=== PATIENT | male | born 1985 | race Caucasian/White ===

== ENCOUNTER → 2016-03-11 | Day surgery (SDC) | payer OTHER ==
[~2016-03-11] VITALS: Ht 180.3 cm; Wt 82.6 kg
[~2016-03-11] MED LIST: FLOM5CAP PO; LR 1,000 ML IV SCH; MIDAZOLAM INJ 2 MG/2 ML VIAL (J2250) As Ordered ONE; ONDANSETRON 4MG/2ML VIAL (J2405) IV PRN; PERC5TAB6 PO; PERCOCET 5MG/325MG TAB PO PRN; ceFAZolin 2 GM/D5W 50 ML IV BAG (J0690) As Ordered ONE; fentaNYL 100 MCG/2 ML INJECTION (J3010) As Ordered ONE
--- NOTE | 2016-03-11 09:20 | REP ---
Clinical: Nephrolithiasis. Technique: Single supine view of the abdomen and pelvis. Comparison: 02/24/2016. Findings: 3 mm calcification in the lower pole left kidney is again identified and unchanged. Smaller bilateral intrarenal calcifications cannot be excluded. Bowel gas pattern is nonspecific. No organomegaly. Skeletal structures are intact. Impression: At least 3 mm calcification in the lower pole left kidney. Further calcifications bilaterally cannot be excluded. Signed by Andrea Lancaster MD 03/11/2016 09:11 A
[2016-03-11 11:00] VITALS: BP 134/55
--- NOTE | 2016-03-11 13:12 | RO ---
DATE OF PROCEDURE: 03/11/2015 PREOPERATIVE DIAGNOSIS: Left kidney stone. POSTOPERATIVE DIAGNOSIS: Left kidney stone. SURGERY PERFORMED: Left extracorporeal shockwave lithotripsy. SURGEON: Dr. Reece Weinberg ASSISTANT WAREHOUSE MANAGER: None. ANESTHESIA: Monitored anesthesia care (MAC). COMPLICATIONS: None. ESTIMATED BLOOD LOSS: N/A. HISTORY OF PRESENT ILLNESS: 30-year-old male patient with a 5 mm left kidney stone in the lower pole. Patient has consented for left extracorporeal shockwave lithotripsy. PROCEDURE DESCRIPTION: In a patient in supine position under MAC anesthesia, after finding the stone with ultrasound and x-ray, we gave a total of pulses of 2500 at a power of 1-20. The first 100 shockwave lithotripsies were done at a level of 1-5, the following 100 shockwave lithotripsies were done at a level of 5-10, and the following 2200 shockwave lithotripsies were done at a level of 10-20. There were no complications of surgery. The patient will go home today with pain medication and Flomax. He will strain the urine and increase water intake for 3 liters. Followup at [facility] in about 3 weeks.
== END | disposition home or self-care (01) ==
LOC: M SDC 06:50
PROVIDERS: ATTEND Urology
DX: N20.0 Calculus of kidney (principal); F17.290 Nicotine dependence, other tobacco product, uncomplicated; K21.9 Gastro-esophageal reflux disease without esophagitis; G89.29 Other chronic pain; R06.83 Snoring; F32.9 Major depressive disorder, single episode, unspecified; G47.33 Obstructive sleep apnea (adult) (pediatric); Z87.820 Personal history of traumatic brain injury; Z91.018 Allergy to other foods; Z87.440 Personal history of urinary (tract) infections
CPT/HCPCS: 50590; 74000; J0690; J2250; J3010

== ENCOUNTER → 2016-04-01 | Outpatient (CLI) | payer OTHER ==
[~2016-04-01] MED LIST changes: -LR 1,000 ML IV SCH; -MIDAZOLAM INJ 2 MG/2 ML VIAL (J2250) As Ordered ONE; -ONDANSETRON 4MG/2ML VIAL (J2405) IV PRN; -PERCOCET 5MG/325MG TAB PO PRN; -ceFAZolin 2 GM/D5W 50 ML IV BAG (J0690) As Ordered ONE; -fentaNYL 100 MCG/2 ML INJECTION (J3010) As Ordered ONE
--- NOTE | 2016-04-01 09:17 | REP ---
CT study of the abdomen pelvis without IV or oral contrast: Renal stone protocol. History: Left flank pain. History of kidney stones. Comparison CT study is from February 18 2016. This showed intrarenal calculi in the upper and lower pole of the left kidney. Findings: The lung bases are clear. The liver and the spleen remain normal in size and homogeneous in texture. No adrenal lesion is seen. The gallbladder and the pancreas are unremarkable. Small and large intestinal bowel loops are normal in appearance. A normal appendix is seen. There is a dystrophic calcification in the prostate again noted unchanged. Seminal vesicles and urinary bladder are unremarkable. No hydronephrosis is seen on either side. There is a 4 mm calculus again noted in the intrarenal collecting system in the upper pole of the left kidney. The previously identified intrarenal calculus in the left lower pole is not visible today consistent with passage in the interval since the prior study of February 18, 2016. No intrarenal calculus or ureteral calculus is noted on the right. Exam is otherwise unremarkable. Impression: 4 mm intrarenal calculus upper pole left kidney persists. Previously noted lower pole left renal calculus is no longer present. No hydronephrosis, bladder or ureteral calculus seen. Signed by Ned Glover MD 04/01/2016 09:26 A
== END ==
LOC: M RAD 07:49
PROVIDERS: ATTEND Urology
DX: R10.9 Unspecified abdominal pain (principal); N20.0 Calculus of kidney

== ENCOUNTER → 2016-04-02 | Outpatient (CLI) | payer OTHER ==
--- NOTE | 2016-04-02 10:10 | REP ---
KUB ABDOMEN AND PELVIS: Two KUB films of the abdomen and pelvis are performed and compared to a prior study of 03/11/2016. The previously noted subcentimeter calcification in the lower pole of the left kidney is no longer visualized. There is a tiny subcentimeter calcification in the upper pole of the left kidney, which is not well visualized today due to overlying bowel gas. No other abnormal calcifications are seen. There is normal bowel gas pattern. The visualized osseous structures appear essentially unremarkable. IMPRESSION: Previously noted subcentimeter calcification in the lower pole of the left kidney is no longer visualized. Subcentimeter calcification in the upper pole of the left kidney is only vaguely visualized, not well see due to overlying bowel gas. Signed by Royal Viramontes MD 04/02/2016 01:13 P
[2016-04-02 12:10] LABS: MEAN CORPUSCULAR HEMOGLOBIN 29.5 pg (27.0-33.0); MEAN CORPUSCULAR HGB CONC 31.9 g/dl (32.0-36.5); MEAN CORPUSCULAR VOLUME 92.6 fl (80.0-96.0); RED CELL DISTRIBUTION WIDTH 12.3 % (11.5-14.5); WHITE BLOOD COUNT 6.4 K/mm3 (4.0-10.0)
[2016-04-02 12:17] LABS: INR 0.93
[2016-04-02 12:19] LABS: ANION GAP 11 MEQ/L (8-16); BLOOD UREA NITROGEN 15 MG/DL (7-18); CALCIUM LEVEL 9.7 MG/DL (8.5-10.1); CARBON DIOXIDE LEVEL 26 MEQ/L (21-32); CHLORIDE LEVEL 104 MEQ/L (98-107); CREATININE FOR GFR 1.01 MG/DL (0.70-1.30); GLOMERULAR FILTRATION RATE > 60.0 (>60); GLUCOSE, FASTING 83 MG/DL (70-105); POTASSIUM SERUM 4.6 MEQ/L (3.5-5.1); SODIUM LEVEL 141 MEQ/L (136-145)
== END ==
LOC: M SMT 08:20
PROVIDERS: ATTEND Nurse Practitioner Women's Health
DX: Z01.818 Encounter for other preprocedural examination (principal); N20.0 Calculus of kidney

== ENCOUNTER 2016-04-08 07:15 | Day surgery (SDC) | payer OTHER ==
[2016-04-08] MEDS ORDERED: LR 1,000 ML IV SCH ×2 (08:00→10:00)
--- NOTE | 2016-04-08 08:01 | REP ---
Clinical: Nephrolithiasis. Comparison: 04/02/2016. Technique: Single supine view of the abdomen and pelvis. Findings: Evaluation of the urinary tract system is limited by overlying bowel gas. No obvious urinary tract calcifications are appreciated. No evidence for bowel obstruction. No organomegaly. No abnormal calcifications. Skeletal structures intact. Impression: Limited evaluation of the urinary tract system. No obvious nephrolithiasis appreciated. Signed by Andrea Lancaster MD 04/08/2016 07:53 A
[2016-04-08] MEDS ORDERED: ceFAZolin 2 GM/D5W 50 ML IV BAG (J0690) As Ordered ONE (08:22)
[2016-04-08] MEDS ORDERED: MIDAZOLAM INJ 2 MG/2 ML VIAL (J2250) As Ordered ONE (08:40)
[2016-04-08] MEDS ORDERED: PROPOFOL 200 MG/20 ML VIAL As Ordered ONE (08:41)
[2016-04-08] MEDS ORDERED: ONDANSETRON 4MG/2ML VIAL (J2405) IV PRN (10:00)
[2016-04-08] MEDS ORDERED: fentaNYL 100 MCG/2 ML INJECTION (J3010) IV PRN (10:00)
[2016-04-08] MEDS ORDERED: PERCOCET 5MG/325MG TAB PO PRN (10:00)
[2016-04-08 10:15] VITALS: BP 110/82
--- NOTE | 2016-04-08 10:40 | RO ---
DATE OF PROCEDURE: 04/08/2016 PREOPERATIVE DIAGNOSIS: Left kidney stone. POSTOPERATIVE DIAGNOSIS: Left kidney stone. SURGERY PERFORMED: Left extracorporeal shockwave lithotripsy. SURGEON: Dr. Reece Weinberg FEEDER OPERATOR AUTOMATIC: None. ANESTHESIA: Monitored anesthesia care (MAC). COMPLICATIONS: None. ESTIMATED BLOOD LOSS: N/A. HISTORY OF PRESENT ILLNESS: This is a 30-year-old male patient with a left kidney stone about 4 mm in diameter in the lower pole of the kidney. For this reason, he has consented for a left extracorporeal shockwave lithotripsy. PROCEDURE DESCRIPTION: In a patient under MAC anesthesia in supine position after finding the stone with ultrasound and x-ray, we gave a total of 2500 impulses at a power of 1 to 20. The first 100 impulses were performed at a level of 1-5, the following 100 shockwave lithotripsy was done at a power of 5-10, and the final 2300 shockwave lithotripsies were done at a power of 10-20. The patient tolerated well the procedure. There were no complications. The patient will go home today with pain medication and Flomax. Will increase water intake to 3 liters. Followup at [facility] [place] in about 3 weeks.
[2016-04-11] MEDS ORDERED: KETOROLAC 30 MG/ML VIAL (J1885) As Ordered ONE (18:04)
== END 2016-04-08 10:25 | disposition home or self-care (01) ==
LOC: M SDC 07:15
PROVIDERS: ATTEND Urology
DX: N20.0 Calculus of kidney (principal); F17.290 Nicotine dependence, other tobacco product, uncomplicated; K21.9 Gastro-esophageal reflux disease without esophagitis; G89.29 Other chronic pain; G47.33 Obstructive sleep apnea (adult) (pediatric); R06.83 Snoring; F41.9 Anxiety disorder, unspecified; Z87.820 Personal history of traumatic brain injury; Z91.018 Allergy to other foods; Z87.440 Personal history of urinary (tract) infections; Z79.899 Other long term (current) drug therapy
CPT/HCPCS: 50590; 74000; J0690; J2250

== ENCOUNTER 2016-04-11 17:27 | Emergency (ER) | payer OTHER ==
[2016-04-11] MEDS ORDERED: KETOROLAC 30 MG/ML VIAL (J1885) ONE (17:28)
[2016-04-11 18:19] LABS: BASO % 0.7 % (0.0-1.0); EOS # 0.2 K/mm3 (0.0-0.50); EOS % 2.2 % (0.0-3.0); LARGE UNSTAINED CELL # 0.6 K/mm3 (0.0-0.4); LARGE UNSTAINED CELL % 7.2 % (0.0-4.0); LYMPH # 3.1 K/mm3 (1.5-4.5); LYMPH % 33.4 % (24.0-44.0); MEAN CORPUSCULAR HEMOGLOBIN 30.6 pg (27.0-33.0); MEAN CORPUSCULAR HGB CONC 33.1 g/dl (32.0-36.5); MEAN CORPUSCULAR VOLUME 92.5 fl (80.0-96.0); MONO # 0.7 K/mm3 (0.0-0.8); MONO % 9.3 % (0.0-5.0); NEUTROPHILS # 3.6 K/mm3 (1.8-7.7); NEUTROPHILS % 47.1 % (36.0-66.0); PLATELET COUNT, AUTOMATED 245 k/mm3 (150-450); RED CELL DISTRIBUTION WIDTH 12.7 % (11.5-14.5); WHITE BLOOD COUNT 7.6 K/mm3 (4.0-10.0)
[2016-04-11 18:38] LABS: ANION GAP 7 MEQ/L (8-16); BLOOD UREA NITROGEN 12 MG/DL (7-18); CALCIUM LEVEL 8.9 MG/DL (8.5-10.1); CARBON DIOXIDE LEVEL 30 MEQ/L (21-32); CHLORIDE LEVEL 106 MEQ/L (98-107); CREATININE FOR GFR 0.99 MG/DL (0.70-1.30); GLOMERULAR FILTRATION RATE > 60.0 (>60); GLUCOSE, FASTING 89 MG/DL (70-105); POTASSIUM SERUM 4.3 MEQ/L (3.5-5.1); SODIUM LEVEL 143 MEQ/L (136-145)
--- NOTE | 2016-04-11 19:00 | REPUSA ---
CT of the abdomen and pelvis without contrast Clinical statement: Pain. Technique: Multiple axial CT images were obtained from the base of the lungs to the floor of the pelv is utilizing 5 mm axial slices without administration of contrast. Coronal and sagittal reconstructio ns were also obtained. Comparison: 04/01/2016. Findings: Chest: The visualized lung bases demonstrate minimal atelectasis bilaterally. Abdomen: The kidneys are normal in size bilaterally. There is no evidence of hydronephrosis. A 2 mm s tone is seen in the left kidney. The liver, spleen, pancreas, gallbladder and adrenal glands are unre markable. The aorta demonstrates normal caliber and contour. There is no abdominal lymphadenopathy or ascites. Pelvis: The bowel is unremarkable, with no obstructive or inflammatory changes. The appendix is trav l. The urinary bladder is within normal limits. There is no pelvic lymphadenopathy or ascites. The ot her pelvic structures appear unremarkable. Bones: There are no suspicious osseous abnormalities seen. Impression: 1. Nonobstructing left renal nephrolithiasis. 2. No obstructive or inflammatory bowel changes. 3. Minimal atelectasis in the lung bases bilaterally.
--- NOTE | 2016-04-11 19:31 | EDDOCDS ---
Nurse's Notes [facility] Name: Royal Chirinos Age: 30 yrs Sex: Male : 1985 Arrival Date: 04/11/2016 Time: 17:27 Bed PR Private MD: Jackie Espinoza [facility] Diagnosis: Calculus of kidney Presentation: 04/11 17:32 Presenting complaint: Patient states: left flank pain- had lithotripsy on th and i srm havent pee'd out any stones and pain is getting worse and worse. Acute neurological deficits are not present. Mechanism of Injury: No Mechanism of Injury. Adult Sepsis Screening: The patient does not have new or worsening altered mentation. Patient's respiratory rate is less than 22. Systolic blood pressure is greater than 100. Patient has a qSOFA score of 0- Negative Sepsis Screen. Suicide/Homicide risk assessment- the patient denies having any suicidal and/or homicidal ideations and does not present with any other emotional, behavioral or mental health complaints. Status: The patient is an active duty manufacturer's service representative. Transition of care: patient was not received from another setting of care. 17:32 Acuity: JANICE Level 3 [facility] 17:32 Method Of Arrival: Walkin/Carried/Asstd [facility] Triage Assessment: 17:33 General: Appears uncomfortable, Behavior is appropriate for age, cooperative. Pain: srm Pain currently is 9 out of 10 on a pain scale. HIV screening NA for this visit Offered previously. Musculoskeletal: Reports left flank pain'. Historical: - Allergies: no known allergies; - Home Meds: 1. tamsulosin 0.4 mg oral cp24 1 cap once daily (Last dose: 04/11/2016 05:45) 2. Percocet 5-325 mg oral tab every 4-6 hours prn (Last dose: 04/11/2016 14:30) - PMHx: Kidney stones; - PSHx: Hernia repair; Back surgery; Lithotripsy; - Social history: Smoking status: Patient uses tobacco products, current every day smoker. No barriers to communication noted, The patient speaks fluent [place] Island[place], Speaks appropriately for age. - Family history: Not pertinent. - : The pt / caregiver states he / she is not on anticoagulants. Home medication list is obtained from the patient. - Exposure Risk Screening:: None identified. Screenin:12 Screening information is obtained from the patient. Fall risk: No risks identified. kr3 Assistance ADL's: requires no assistance with activities of daily living. Abuse/DV Screen: The patient / caregiver reports he/she is: not in a situation that causes fear, pain or injury. Nutritional screening: No deficits noted. Advance Directives: Currently, there is no health care proxy. home support is adequate. Assessment: 18:11 General: Appears uncomfortable. Pain: Location: left flank Pain currently is 8 out of kr3 10 on a pain scale. Pain radiates to left lower quadrant. Respiratory: Respiratory effort is even, unlabored. Derm: Skin is pink, warm & dry. 19:27 Reassessment: Patient appears in no apparent distress at this time. General: Appears slm comfortable, pt reports feeling better . Vital Signs: 17:28 BP 120 / 80 RA Sitting (auto/lg); Pulse 66; Resp 16; Temp 97.3(O); Pulse Ox 100% on rs6 R/A; Weight 81.65 kg (R); Height 71 in. (180.34 cm) (R); Pain 8/10; 19:28 BP 126 / 81; Pulse 75; Resp 16; Pulse Ox 97% ; Pain 4/10; slm 19:29 Pain 4/10; slm 17:28 Body Mass Index 25.10 (81.65 kg, 180.34 cm) [facility] Vitals: 17:28 Log In Time: April 11, 2016 at 17:28. rs6 ED Course: 17:28 Patient visited by Mariah Vinson PCA. rs6 17:28 [facility] hospital is Private Physician. rs6 17:28 Patient moved to Waiting rs6 17:30 Patient visited by Mariah Vinson PCA. rs6 17:30 Patient moved to Pre RCE rs6 17:32 Triage Initiated srm 17:34 Patient moved to Triage 2 srm 17:36 Claudio Ace PA is PHCP. btw 17:36 Magdalene Guerra MD is Attending Physician. btw 17:36 Patient visited by Claudio Ace PA. btw 18:11 Patient visited by Garima Luciano RN. kr3 18:11 Urine Culture Sent. kr3 18:11 Urinalysis Sent. kr3 18:11 BMP Sent. kr3 18:11 CBC with Diff Sent. kr3 18:12 The patient / caregiver is instructed regarding the plan of care and ED course. kr3 Accompanied by Family Member, Patient has correct armband on for positive identification. 18:13 Patient moved to [address] 18:23 [facility] Payment Agreement was scanned into [employer] and attached to record. gjb 18:33 Patient name changed from Royal\S\\S\Chirinos\S\ to Royal\S\ \S\Chirinos. EDMS 19:16 Patient moved to PR slm 19:20 Reece Weinberg is Referral Physician. btw 19:21 CT ABD & PELVIS: No Contrast Returned. EDMS 19:27 Parisa Wong LPN is Primary Nurse. slm 19:28 No IV's were initiated during this patient's visit. No procedures done that require slm assistance. Administered Medications: 18:11 Drug: ketorolac 30 mg [ketorolac 30 mg/mL (1 mL) injection solution (1 mL)] Route: IM; kr3 Site: left deltoid; 19:29 Follow up: Pain 06/14 Adult slm Order Results: Lab Order: CBC with Diff; SPEC'M 04/11/16 18:08 Test: WHITE BLOOD COUNT; Value: 7.6; Range: 4.0-10.0; Units: K/mm3; Status: F Test: RED BLOOD COUNT; Value: 5.26; Range: 4.30-6.10; Units: M/mm3; Status: F Test: HEMOGLOBIN; Value: 16.1; Range: 14.0-18.0; Units: g/dl; Status: F Test: HEMATOCRIT; Value: 48.7; Range: 42.0-52.0; Units: %; Status: F Test: MEAN CORPUSCULAR VOLUME; Value: 92.5; Range: 80.0-96.0; Units: fl; Status: F Test: MEAN CORPUSCULAR HEMOGLOBIN; Value: 30.6; Range: 27.0-33.0; Units: pg; Status: F Test: MEAN CORPUSCULAR HGB CONC; Value: 33.1; Range: 32.0-36.5; Units: g/dl; Status: F Test: RED CELL DISTRIBUTION WIDTH; Value: 12.7; Range: 11.5-14.5; Units: %; Status: F Test: PLATELET COUNT, AUTOMATED; Value: 245; Range: 150-450; Units: k/mm3; Status: F Test: NEUTROPHILS %; Value: 47.1; Range: 36.0-66.0; Units: %; Status: F Test: LYMPH %; Value: 33.4; Range: 24.0-44.0; Units: %; Status: F Test: MONO %; Value: 9.3; Range: 0.0-5.0; Abnormal: Above high normal; Units: %; Status: F Test: EOS %; Value: 2.2; Range: 0.0-3.0; Units: %; Status: F Test: BASO %; Value: 0.7; Range: 0.0-1.0; Units: %; Status: F Test: LARGE UNSTAINED CELL %; Value: 7.2; Range: 0.0-4.0; Abnormal: Above high normal; Units: %; Status: F Test: NEUTROPHILS #; Value: 3.6; Range: 1.8-7.7; Units: K/mm3; Status: F Test: LYMPH #; Value: 3.1; Range: 1.5-4.5; Units: K/mm3; Status: F Test: MONO #; Value: 0.7; Range: 0.0-0.8; Units: K/mm3; Status: F Test: EOS #; Value: 0.2; Range: 0.0-0.50; Units: K/mm3; Status: F Test: BASO #; Value: 0.0; Range: 0.0-0.2; Units: K/mm3; Status: F Test: LARGE UNSTAINED CELL #; Value: 0.6; Range: 0.0-0.4; Abnormal: Above high normal; Units: K/mm3; Status: F Lab Order: [facility]; SPEC'M 04/11/16 18:08 Test: GLUCOSE, FASTING; Value: 89; Range: 70-105; Units: MG/DL; Status: F Test: BLOOD UREA NITROGEN; Value: 12; Range: 7-18; Units: MG/DL; Status: F Test: CREATININE FOR GFR; Value: 0.99; Range: 0.70-1.30; Units: MG/DL; Status: F Test: GLOMERULAR FILTRATION RATE; Value: > 60.0; Range: >60; Status: F Test: SODIUM LEVEL; Value: 143; Range: 136-145; Units: MEQ/L; Status: F Test: POTASSIUM SERUM; Value: 4.3; Range: 3.5-5.1; Units: MEQ/L; Status: F Test: CHLORIDE LEVEL; Value: 106; Range: 98-107; Units: MEQ/L; Status: F Test: CARBON DIOXIDE LEVEL; Value: 30; Range: 21-32; Units: MEQ/L; Status: F Test: ANION GAP; Value: 7; Range: 8-16; Abnormal: Below low normal; Units: MEQ/L; Status: F Test: CALCIUM LEVEL; Value: 8.9; Range: 8.5-10.1; Units: MG/DL; Status: F Test Note: ; Units are mL/min/1.73 m2 Chronic Kidney Disease Staging per NKF: Stage I & II GFR >=60 Normal to Mildly Decreased Stage III GFR 30-59 Moderately Decreased Stage IV GFR 15-29 Severely Decreased Stage V GFR <15 Very Little GFR Left ESRD GFR <15 on HEAD OF DIGITAL Lab Order: Urinalysis; SPEC'M 04/11/16 18:08 Test: APPEARANCE, URINE; Value: CLEAR; Range: CLEAR; Status: F Test: COLOR, URINE; Value: YELLOW; Range: YELLOW; Status: F Test: PH,URINE; Value: 6.0; Range: 5.0-9.0; Units: UNITS; Status: F Test: SPECIFIC GRAVITY URINE AUTO; Value: 1.010; Range: 1.002-1.035; Status: F Test: PROTEIN, URINE AUTO; Value: NEGATIVE; Range: NEGATIVE; Units: mg/dL; Status: F Test: GLUCOSE, URINE (UA) AUTO; Value: NEGATIVE; Range: NEGATIVE; Units: mg/dL; Status: F Test: KETONE, URINE AUTO; Value: NEGATIVE; Range: NEGATIVE; Units: mg/dL; Status: F Test: UROBILINOGEN, URINE AUTO; Value: 0.2; Range: 0.0-2.0; Units: mg/dL; Status: F Test: BILIRUBIN, URINE AUTO; Value: NEGATIVE; Range: NEGATIVE; Status: F Test: NITRITE, URINE AUTO; Value: NEGATIVE; Range: NEGATIVE; Status: F Test: LEUKOCYTE ESTERASE, URINE AUTO; Value: NEGATIVE; Range: NEGATIVE; Status: F Test: BLOOD, URINE BLOOD; Value: 2+; Range: NEGATIVE; Abnormal: Above high normal; Status: F Test: WBC, URINE AUTO; Value: 1; Range: 0-3; Units: /HPF; Status: F Test: RBC, URINE AUTO; Value: 17; Range: 0-3; Abnormal: Above high normal; Units: /HPF; Status: F Test: BACTERIA, URINE AUTO; Value: NEGATIVE; Range: NEGATIVE; Status: F Test: SQUAMOUS EPITHELIAL CELL UR AU; Value: 0; Range: 0-6; Units: /HPF; Status: F Test: MUCUS, URINE; Value: SMALL; Range: NEGATIVE; Status: F Test: HYALINE CAST, URINE AUTO; Value: 0; Range: 0-1; Units: /LPF; Status: F Radiology Order: CT ABD & PELVIS: No Contrast Test: CT ABD & PELVIS: No Contrast REASON FOR EXAMINATION: LEFT flank pain s/p lithotripsy; ; CT of the abdomen and pelvis without contrast; Clinical statement: Pain.; Technique: Multiple axial CT images were obtained from the base of the lungs to the floor of the pelv; is utilizing 5 mm axial slices without administration of contrast. Coronal and sagittal reconstructio; ns were also obtained.; Comparison: 04/01/2016.; Findings:; Chest: The visualized lung bases demonstrate minimal atelectasis bilaterally.; Abdomen: The kidneys are normal in size bilaterally. There is no evidence of hydronephrosis. A 2 mm s; tone is seen in the left kidney. The liver, spleen, pancreas, gallbladder and adrenal glands are unre; markable. The aorta demonstrates normal caliber and contour. There is no abdominal lymphadenopathy or; ascites.; Pelvis: The bowel is unremarkable, with no obstructive or inflammatory changes. The appendix is trav; l. The urinary bladder is within normal limits. There is no pelvic lymphadenopathy or ascites. The ot; her pelvic structures appear unremarkable.; Bones: There are no suspicious osseous abnormalities seen.; Impression:; 1. Nonobstructing left renal nephrolithiasis.; 2. No obstructive or inflammatory bowel changes.; 3. Minimal atelectasis in the lung bases bilaterally.; ; Outcome: 19:21 Discharge ordered by Provider. btw 19:27 Discharge Assessment: Patient awake, alert and oriented x 3. No cognitive and/or slm functional deficits noted. Patient verbalized understanding of disposition instructions. patient administered narcotics - no. The following High Risk Discharge criteria are identified: None. Discharged to home ambulatory, with significant other. Condition: good Condition: improved. Discharge instructions given to patient, Instructed on discharge instructions, follow up and referral plans. medication usage, Demonstrated understanding of instructions, medications, Pt was receptive of discharge instructions/ teaching. CT Study completed. Property :Personal belongings accompany Pt. 19:29 Patient left the ED. slm Signatures: Dispatcher [employer] EDMS Sobeida Jasso, RN RN Garima RowanRN RN kr3 Claudio Ace, KATIE PA btMagdalene Loomis Stephanie,ANGIE HOME IMPROVEMENT CONTRACTOR Mariah Olvera, DENILSON CLEARING HAND rs6 Shelbie Mcneal MTDD
--- NOTE | 2016-04-11 19:31 | EDDOCDS ---
Physician Documentation [facility] Name: Royal Chirinos Age: 30 yrs Sex: Male : 1985 Arrival Date: 04/11/2016 Time: 17:27 Bed PR Private MD: Jackie Espinoza [facility] Disposition: 04/11/16 19:21 Discharged to Home/Self Care. Impression: Calculus of kidney. - Condition is Stable. - Discharge Instructions: Kidney Stones. - Prescriptions for Diclofenac Sodium 75 mg Oral Tablet, Delayed Release (E.C.) - take 1 tablet by ORAL route 2 times per day; 30 tablet. - Medication Reconciliation, Local Pharmacy Hours form. - Follow up: Reece Weinberg; When: Call to arrange an appointment; Reason: Further diagnostic work-up, Recheck today's complaints, Continuance of care. - Problem is an ongoing problem. - Symptoms are unchanged. Historical: - Allergies: no known allergies; - Home Meds: 1. tamsulosin 0.4 mg oral cp24 1 cap once daily (Last dose: 04/11/2016 05:45) 2. Percocet 5-325 mg oral tab every 4-6 hours prn (Last dose: 04/11/2016 14:30) - PMHx: Kidney stones; - PSHx: Hernia repair; Back surgery; Lithotripsy; - Social history: Smoking status: Patient uses tobacco products, current every day smoker. No barriers to communication noted, The patient speaks fluent [place], Speaks appropriately for age. - Family history: Not pertinent. - : The pt / caregiver states he / she is not on anticoagulants. Home medication list is obtained from the patient. - Exposure Risk Screening:: None identified. Vital Signs: 04/11 17:28 BP 120 / 80 RA Sitting (auto/lg); Pulse 66; Resp 16; Temp 97.3(O); Pulse Ox 100% on rs6 R/A; Weight 81.65 kg / 180.01 lbs (R); Height 71 in. (180.34 cm) (R); Pain 8/10; 19:28 BP 126 / 81; Pulse 75; Resp 16; Pulse Ox 97% ; Pain 4/10; slm 19:29 Pain 4/10; slm 17:28 Body Mass Index 25.10 (81.65 kg, 180.34 cm) rs6 MDM: 18:02 ketorolac 30 mg IM once ordered. btw 18:03 CT ABD & PELVIS: No Contrast Ordered. EDMS 18:03 CBC with Diff Ordered. EDMS 18:03 BMP Ordered. EDMS 18:03 Urinalysis Ordered. EDMS 18:03 Urine Culture Ordered. EDMS 18:15 Financial registration complete. gjb 18:[facility] Payment Agreement was scanned into [employer] and attached to record. gjb 18:44 CBC with Diff Reviewed. btw 18:44 BMP Reviewed. btw 18:44 Urinalysis Reviewed. btw Administered Medications: 18:11 Drug: ketorolac 30 mg [ketorolac 30 mg/mL (1 mL) injection solution (1 mL)] Route: IM; kr3 Site: left deltoid; 19:29 Follow up: Pain 06/14 Adult slm Signatures: Dispatcher [employer] Sobeida Darby RN RN srm Wolfenden, Brandon, PA PA btw Parisa Wong LPN LPN slm Beck, Gabriela gjb Garima Luciano RN kr3 The chart was reviewed and I authenticate all verbal orders and agree with the evaluation and treatment provided.Attachments: 18:23 [facility] Payment Agreement [facility] MTDD
--- NOTE | 2016-04-13 20:30 | EDDOCDS ---
Nurse's Notes [facility] Name: Royal Chirinos Age: 30 yrs Sex: Male : 1985 Arrival Date: 04/11/2016 Time: 17:27 Bed PR Private MD: Jackie Espinoza [facility] Diagnosis: Calculus of kidney Presentation: 04/11 17:32 Presenting complaint: Patient states: left flank pain- had lithotripsy on th and i srm havent pee'd out any stones and pain is getting worse and worse. Acute neurological deficits are not present. Mechanism of Injury: No Mechanism of Injury. Adult Sepsis Screening: The patient does not have new or worsening altered mentation. Patient's respiratory rate is less than 22. Systolic blood pressure is greater than 100. Patient has a qSOFA score of 0- Negative Sepsis Screen. Suicide/Homicide risk assessment- the patient denies having any suicidal and/or homicidal ideations and does not present with any other emotional, behavioral or mental health complaints. Status: The patient is an active duty sales service promoter. Transition of care: patient was not received from another setting of care. 17:32 Acuity: JANICE Level [address] [facility] 17:32 Method Of Arrival: Walkin/Carried/Asstd [facility] Triage Assessment: 17:33 General: Appears uncomfortable, Behavior is appropriate for age, cooperative. Pain: srm Pain currently is 9 out of 10 on a pain scale. HIV screening NA for this visit Offered previously. Musculoskeletal: Reports left flank pain'. Historical: - Allergies: no known allergies; - Home Meds: 1. tamsulosin 0.4 mg oral cp24 1 cap once daily (Last dose: 04/11/2016 05:45) 2. Percocet 5-325 mg oral tab every 4-6 hours prn (Last dose: 04/11/2016 14:30) - PMHx: Kidney stones; - PSHx: Hernia repair; Back surgery; Lithotripsy; - Social history: Smoking status: Patient uses tobacco products, current every day smoker. No barriers to communication noted, The patient speaks fluent Tongan, Speaks appropriately for age. - Family history: Not pertinent. - : The pt / caregiver states he / she is not on anticoagulants. Home medication list is obtained from the patient. - Exposure Risk Screening:: None identified. Screenin:12 Screening information is obtained from the patient. Fall risk: No risks identified. kr3 Assistance ADL's: requires no assistance with activities of daily living. Abuse/DV Screen: The patient / caregiver reports he/she is: not in a situation that causes fear, pain or injury. Nutritional screening: No deficits noted. Advance Directives: Currently, there is no health care proxy. home support is adequate. Assessment: 18:11 General: Appears uncomfortable. Pain: Location: left flank Pain currently is 8 out of kr3 10 on a pain scale. Pain radiates to left lower quadrant. Respiratory: Respiratory effort is even, unlabored. Derm: Skin is pink, warm & dry. 19:27 Reassessment: Patient appears in no apparent distress at this time. General: Appears slm comfortable, pt reports feeling better . Vital Signs: 17:28 BP 120 / 80 RA Sitting (auto/lg); Pulse 66; Resp 16; Temp 97.3(O); Pulse Ox 100% on rs6 R/A; Weight 81.65 kg (R); Height 71 in. (180.34 cm) (R); Pain 8/10; 19:28 BP 126 / 81; Pulse 75; Resp 16; Pulse Ox 97% ; Pain 4/10; slm 19:29 Pain 4/10; slm 17:28 Body Mass Index 25.10 (81.65 kg, 180.34 cm) [facility] Vitals: 17:28 Log In Time: April 11, 2016 at 17:28. rs6 ED Course: 17:28 Patient visited by Mariah Vinson PCA. rs6 17:28 [facility] is Private Physician. rs6 17:28 Patient moved to Waiting rs6 17:30 Patient visited by Mariah Vinson PCA. rs6 17:30 Patient moved to Pre RCE rs6 17:32 Triage Initiated srm 17:34 Patient moved to Triage 2 srm 17:36 Claudio Ace PA is PHCP. btw 17:36 Magdalene Guerra MD is Attending Physician. btw 17:36 Patient visited by Claudio Ace PA. btw 18:11 Patient visited by Garima Luciano RN. kr3 18:11 Urine Culture Sent. kr3 18:11 Urinalysis Sent. kr3 18:11 BMP Sent. kr3 18:11 CBC with Diff Sent. kr3 18:12 The patient / caregiver is instructed regarding the plan of care and ED course. kr3 Accompanied by Family Member, Patient has correct armband on for positive identification. 18:13 Patient moved to [address] 18:23 [facility] Payment Agreement was scanned into [employer] and attached to record. gjb 18:33 Patient name changed from Royal\S\\S\Chirinos\S\ to Royal\S\ \S\Chirinos. EDMS 19:16 Patient moved to PR slm 19:20 Reece Weinberg is Referral Physician. btw 19:21 CT ABD & PELVIS: No Contrast Returned. EDMS 19:27 Parisa Wong LPN is Primary Nurse. slm 19:28 No IV's were initiated during this patient's visit. No procedures done that require slm assistance. 04/12 12:12 T-Sheet-- Draft Copy was scanned into [employer] and attached to record. gb Administered Medications: 04/11 18:11 Drug: ketorolac 30 mg [ketorolac 30 mg/mL (1 mL) injection solution (1 mL)] Route: IM; kr3 Site: left deltoid; 19:29 Follow up: Pain 06/14 Adult slm Order Results: Lab Order: CBC with Diff; SPEC'M 04/11/16 18:08 Test: WHITE BLOOD COUNT; Value: 7.6; Range: 4.0-10.0; Units: K/mm3; Status: F Test: RED BLOOD COUNT; Value: 5.26; Range: 4.30-6.10; Units: M/mm3; Status: F Test: HEMOGLOBIN; Value: 16.1; Range: 14.0-18.0; Units: g/dl; Status: F Test: HEMATOCRIT; Value: 48.7; Range: 42.0-52.0; Units: %; Status: F Test: MEAN CORPUSCULAR VOLUME; Value: 92.5; Range: 80.0-96.0; Units: fl; Status: F Test: MEAN CORPUSCULAR HEMOGLOBIN; Value: 30.6; Range: 27.0-33.0; Units: pg; Status: F Test: MEAN CORPUSCULAR HGB CONC; Value: 33.1; Range: 32.0-36.5; Units: g/dl; Status: F Test: RED CELL DISTRIBUTION WIDTH; Value: 12.7; Range: 11.5-14.5; Units: %; Status: F Test: PLATELET COUNT, AUTOMATED; Value: 245; Range: 150-450; Units: k/mm3; Status: F Test: NEUTROPHILS %; Value: 47.1; Range: 36.0-66.0; Units: %; Status: F Test: LYMPH %; Value: 33.4; Range: 24.0-44.0; Units: %; Status: F Test: MONO %; Value: 9.3; Range: 0.0-5.0; Abnormal: Above high normal; Units: %; Status: F Test: EOS %; Value: 2.2; Range: 0.0-3.0; Units: %; Status: F Test: BASO %; Value: 0.7; Range: 0.0-1.0; Units: %; Status: F Test: LARGE UNSTAINED CELL %; Value: 7.2; Range: 0.0-4.0; Abnormal: Above high normal; Units: %; Status: F Test: NEUTROPHILS #; Value: 3.6; Range: 1.8-7.7; Units: K/mm3; Status: F Test: LYMPH #; Value: 3.1; Range: 1.5-4.5; Units: K/mm3; Status: F Test: MONO #; Value: 0.7; Range: 0.0-0.8; Units: K/mm3; Status: F Test: EOS #; Value: 0.2; Range: 0.0-0.50; Units: K/mm3; Status: F Test: BASO #; Value: 0.0; Range: 0.0-0.2; Units: K/mm3; Status: F Test: LARGE UNSTAINED CELL #; Value: 0.6; Range: 0.0-0.4; Abnormal: Above high normal; Units: K/mm3; Status: F Lab Order: [facility]; SPEC'M 04/11/16 18:08 Test: GLUCOSE, FASTING; Value: 89; Range: 70-105; Units: MG/DL; Status: F Test: BLOOD UREA NITROGEN; Value: 12; Range: 7-18; Units: MG/DL; Status: F Test: CREATININE FOR GFR; Value: 0.99; Range: 0.70-1.30; Units: MG/DL; Status: F Test: GLOMERULAR FILTRATION RATE; Value: > 60.0; Range: >60; Status: F Test: SODIUM LEVEL; Value: 143; Range: 136-145; Units: MEQ/L; Status: F Test: POTASSIUM SERUM; Value: 4.3; Range: 3.5-5.1; Units: MEQ/L; Status: F Test: CHLORIDE LEVEL; Value: 106; Range: 98-107; Units: MEQ/L; Status: F Test: CARBON DIOXIDE LEVEL; Value: 30; Range: 21-32; Units: MEQ/L; Status: F Test: ANION GAP; Value: 7; Range: 8-16; Abnormal: Below low normal; Units: MEQ/L; Status: F Test: CALCIUM LEVEL; Value: 8.9; Range: 8.5-10.1; Units: MG/DL; Status: F Test Note: ; Units are mL/min/1.73 m2 Chronic Kidney Disease Staging per NKF: Stage I & II GFR >=60 Normal to Mildly Decreased Stage III GFR 30-59 Moderately Decreased Stage IV GFR 15-29 Severely Decreased Stage V GFR <15 Very Little GFR Left ESRD GFR <15 on [facility] Lab Order: Urinalysis; SPEC'M 04/11/16 18:08 Test: APPEARANCE, URINE; Value: CLEAR; Range: CLEAR; Status: F Test: COLOR, URINE; Value: YELLOW; Range: YELLOW; Status: F Test: PH,URINE; Value: 6.0; Range: 5.0-9.0; Units: UNITS; Status: F Test: SPECIFIC GRAVITY URINE AUTO; Value: 1.010; Range: 1.002-1.035; Status: F Test: PROTEIN, URINE AUTO; Value: NEGATIVE; Range: NEGATIVE; Units: mg/dL; Status: F Test: GLUCOSE, URINE (UA) AUTO; Value: NEGATIVE; Range: NEGATIVE; Units: mg/dL; Status: F Test: KETONE, URINE AUTO; Value: NEGATIVE; Range: NEGATIVE; Units: mg/dL; Status: F Test: UROBILINOGEN, URINE AUTO; Value: 0.2; Range: 0.0-2.0; Units: mg/dL; Status: F Test: BILIRUBIN, URINE AUTO; Value: NEGATIVE; Range: NEGATIVE; Status: F Test: NITRITE, URINE AUTO; Value: NEGATIVE; Range: NEGATIVE; Status: F Test: LEUKOCYTE ESTERASE, URINE AUTO; Value: NEGATIVE; Range: NEGATIVE; Status: F Test: BLOOD, URINE BLOOD; Value: 2+; Range: NEGATIVE; Abnormal: Above high normal; Status: F Test: WBC, URINE AUTO; Value: 1; Range: 0-3; Units: /HPF; Status: F Test: RBC, URINE AUTO; Value: 17; Range: 0-3; Abnormal: Above high normal; Units: /HPF; Status: F Test: BACTERIA, URINE AUTO; Value: NEGATIVE; Range: NEGATIVE; Status: F Test: SQUAMOUS EPITHELIAL CELL UR AU; Value: 0; Range: 0-6; Units: /HPF; Status: F Test: MUCUS, URINE; Value: SMALL; Range: NEGATIVE; Status: F Test: HYALINE CAST, URINE AUTO; Value: 0; Range: 0-1; Units: /LPF; Status: F Lab Order: Urine Culture; SPEC'M 04/11/16 18:08 Test: URINE CULTURE; Value: <EXTERNAL COMMENT eCWMed> FULL REPORT IN LAB NOTES (eCW and Medent).; Status: F Test: URINE CULTURE; Value: URINE CULTURE RESULT NO GROWTH; Status: F Radiology Order: CT ABD & PELVIS: No Contrast Test: CT ABD & PELVIS: No Contrast REASON FOR EXAMINATION: LEFT flank pain s/p lithotripsy; ; CT of the abdomen and pelvis without contrast; Clinical statement: Pain.; Technique: Multiple axial CT images were obtained from the base of the lungs to the floor of the pelv; is utilizing 5 mm axial slices without administration of contrast. Coronal and sagittal reconstructio; ns were also obtained.; Comparison: 04/01/2016.; Findings:; Chest: The visualized lung bases demonstrate minimal atelectasis bilaterally.; Abdomen: The kidneys are normal in size bilaterally. There is no evidence of hydronephrosis. A 2 mm s; tone is seen in the left kidney. The liver, spleen, pancreas, gallbladder and adrenal glands are unre; markable. The aorta demonstrates normal caliber and contour. There is no abdominal lymphadenopathy or; ascites.; Pelvis: The bowel is unremarkable, with no obstructive or inflammatory changes. The appendix is trav; l. The urinary bladder is within normal limits. There is no pelvic lymphadenopathy or ascites. The ot; her pelvic structures appear unremarkable.; Bones: There are no suspicious osseous abnormalities seen.; Impression:; 1. Nonobstructing left renal nephrolithiasis.; 2. No obstructive or inflammatory bowel changes.; 3. Minimal atelectasis in the lung bases bilaterally.; ; Outcome: 19:21 Discharge ordered by Provider. btw 19:27 Discharge Assessment: Patient awake, alert and oriented x 3. No cognitive and/or slm functional deficits noted. Patient verbalized understanding of disposition instructions. patient administered narcotics - no. The following High Risk Discharge criteria are identified: None. Discharged to home ambulatory, with significant other. Condition: good Condition: improved. Discharge instructions given to patient, Instructed on discharge instructions, follow up and referral plans. medication usage, Demonstrated understanding of instructions, medications, Pt was receptive of discharge instructions/ teaching. CT Study completed. Property :Personal belongings accompany Pt. 19:29 Patient left the ED. slm Signatures: Dispatcher [employer] EDMS Sobeida Jasso, RN RN Felicia Fontenot, Garima Rg,RN RN kr3 Claudio Ace PA PA btw Magdalene Baxter Stephanie,[employer] slm Mariah Vinson, DENILSON [employer]AL [employer]ER rs6 Shelbie Mcneal Chart Complete MTDD
--- NOTE | 2016-04-13 20:30 | EDDOCDS ---
Physician Documentation [facility] Name: Royal Chirinos Age: 30 yrs Sex: Male : 1985 Arrival Date: 04/11/2016 Time: 17:27 Bed PR Private MD: Jackie Espinoza [facility] Disposition: 04/11/16 19:21 Discharged to Home/Self Care. Impression: Calculus of kidney. - Condition is Stable. - Discharge Instructions: Kidney Stones. - Prescriptions for Diclofenac Sodium 75 mg Oral Tablet, Delayed Release (E.C.) - take 1 tablet by ORAL route 2 times per day; 30 tablet. - Medication Reconciliation, Local Pharmacy Hours form. - Follow up: Reece Weinberg; When: Call to arrange an appointment; Reason: Further diagnostic work-up, Recheck today's complaints, Continuance of care. - Problem is an ongoing problem. - Symptoms are unchanged. Historical: - Allergies: no known allergies; - Home Meds: 1. tamsulosin 0.4 mg oral cp24 1 cap once daily (Last dose: 04/11/2016 05:45) 2. Percocet 5-325 mg oral tab every 4-6 hours prn (Last dose: 04/11/2016 14:30) - PMHx: Kidney stones; - PSHx: Hernia repair; Back surgery; Lithotripsy; - Social history: Smoking status: Patient uses tobacco products, current every day smoker. No barriers to communication noted, The patient speaks fluent Welsh, Speaks appropriately for age. - Family history: Not pertinent. - : The pt / caregiver states he / she is not on anticoagulants. Home medication list is obtained from the patient. - Exposure Risk Screening:: None identified. Vital Signs: 04/11 17:28 BP 120 / 80 RA Sitting (auto/lg); Pulse 66; Resp 16; Temp 97.3(O); Pulse Ox 100% on rs6 R/A; Weight 81.65 kg / 180.01 lbs (R); Height 71 in. (180.34 cm) (R); Pain 8/10; 19:28 BP 126 / 81; Pulse 75; Resp 16; Pulse Ox 97% ; Pain 4/10; slm 19:29 Pain 4/10; slm 17:28 Body Mass Index 25.10 (81.65 kg, 180.34 cm) rs6 MDM: 18:02 ketorolac 30 mg IM once ordered. btw 18:03 CT ABD & PELVIS: No Contrast Ordered. EDMS 18:03 CBC with Diff Ordered. EDMS 18:03 BMP Ordered. EDMS 18:03 Urinalysis Ordered. EDMS 18:03 Urine Culture Ordered. EDMS 18:15 Financial registration complete. [facility] 18: [facility] Payment Agreement was scanned into [employer] and attached to record. gjb 18:44 CBC with Diff Reviewed. btw 18:44 BMP Reviewed. btw 18:44 Urinalysis Reviewed. btw 04/12 12:12 T-Sheet-- Draft Copy was scanned into [employer] and attached to record. gb Administered Medications: 04/11 18:11 Drug: ketorolac 30 mg [ketorolac 30 mg/mL (1 mL) injection solution (1 mL)] Route: IM; kr3 Site: left deltoid; 19:29 Follow up: Pain 4/10 Adult slm Signatures: Dispatcher [employer] EDSobeida Ramirez, RN RN Felicia Fontenot, Reg Reg gb Claudio Ace PA PA btw Parisa Wong LPN LPN slShelbie Leary gjb Garima Luciano RN kr3 The chart was reviewed and I authenticate all verbal orders and agree with the evaluation and treatment provided.Attachments: : [facility] Payment Agreement [facility] 04/12 12:12 T-Sheet-- Draft Copy Chart Complete MTDD
--- NOTE | 2016-04-13 20:30 | EDDOCDS ---
Physician Documentation [facility] Name: Royal Chirinos Age: 30 yrs Sex: Male : 1985 Arrival Date: 04/11/2016 Time: 17:27 Bed PR Private MD: Jackie Espinoza [facility] Disposition: 04/11/16 19:21 Discharged to Home/Self Care. Impression: Calculus of kidney. - Condition is Stable. - Discharge Instructions: Kidney Stones. - Prescriptions for Diclofenac Sodium 75 mg Oral Tablet, Delayed Release (E.C.) - take 1 tablet by ORAL route 2 times per day; 30 tablet. - Medication Reconciliation, Local Pharmacy Hours form. - Follow up: Reece Weinberg; When: Call to arrange an appointment; Reason: Further diagnostic work-up, Recheck today's complaints, Continuance of care. - Problem is an ongoing problem. - Symptoms are unchanged. Historical: - Allergies: no known allergies; - Home Meds: 1. tamsulosin 0.4 mg oral cp24 1 cap once daily (Last dose: 04/11/2016 05:45) 2. Percocet 5-325 mg oral tab every 4-6 hours prn (Last dose: 04/11/2016 14:30) - PMHx: Kidney stones; - PSHx: Hernia repair; Back surgery; Lithotripsy; - Social history: Smoking status: Patient uses tobacco products, current every day smoker. No barriers to communication noted, The patient speaks fluent Sudanese, Speaks appropriately for age. - Family history: Not pertinent. - : The pt / caregiver states he / she is not on anticoagulants. Home medication list is obtained from the patient. - Exposure Risk Screening:: None identified. Vital Signs: 04/11 17:28 BP 120 / 80 RA Sitting (auto/lg); Pulse 66; Resp 16; Temp 97.3(O); Pulse Ox 100% on rs6 R/A; Weight 81.65 kg / 180.01 lbs (R); Height 71 in. (180.34 cm) (R); Pain 8/10; 19:28 BP 126 / 81; Pulse 75; Resp 16; Pulse Ox 97% ; Pain 4/10; slm 19:29 Pain 4/10; slm 17:28 Body Mass Index 25.10 (81.65 kg, 180.34 cm) rs6 MDM: 18:02 ketorolac 30 mg IM once ordered. btw 18:03 CT ABD & PELVIS: No Contrast Ordered. EDMS 18:03 CBC with Diff Ordered. EDMS 18:03 BMP Ordered. EDMS 18:03 Urinalysis Ordered. EDMS 18:03 Urine Culture Ordered. EDMS 18:15 Financial registration complete. [facility] 18: [facility] Payment Agreement was scanned into [employer] and attached to record. gjb 18:44 CBC with Diff Reviewed. btw 18:44 BMP Reviewed. btw 18:44 Urinalysis Reviewed. btw 04/12 12:12 T-Sheet-- Draft Copy was scanned into [employer] and attached to record. gb Administered Medications: 04/11 18:11 Drug: ketorolac 30 mg [ketorolac 30 mg/mL (1 mL) injection solution (1 mL)] Route: IM; kr3 Site: left deltoid; 19:29 Follow up: Pain 4/10 Adult slm Signatures: Dispatcher [employer] EDSobeida Ramirez, RN RN Felicia Fontenot, Reg Reg gb Claudio Ace PA PA btw Parisa Wong LPN LPN slShelbie Leary gjb Garima Luciano RN kr3 The chart was reviewed and I authenticate all verbal orders and agree with the evaluation and treatment provided.Attachments: : [facility] Payment Agreement [facility] 04/12 12:12 T-Sheet-- Draft Copy Chart Complete MTDD
== END 2016-04-11 19:29 | disposition home or self-care (01) ==
LOC: M ED 17:27
DX: N20.0 Calculus of kidney (principal); Z79.899 Other long term (current) drug therapy; Z87.442 Personal history of urinary calculi
CPT/HCPCS: 74176; 80048; 81001; 85025; 87086; 96372; 99284; J1885

== ENCOUNTER → 2016-05-07 | Outpatient (CLI) | payer OTHER ==
--- NOTE | 2016-05-07 11:28 | REP ---
KUB: Single view. HISTORY: Kidney stone. Comparison KUB study April 08, 2016. Comparison CT study of the abdomen is from April 11, 2016. FINDINGS: Bowel gas pattern is unremarkable. Psoas margins and flank stripes are intact. No mass or organomegaly is seen. There is a curvilinear calcific opacity superimposed on the upper pole left kidney measuring 0.3 cm in diameter. This is compatible with an intrarenal calculus. There is a small calcific opacity in the region of the prostate gland. No other urinary tract calculus is seen. Signed by Ned Glover MD 05/07/2016 04:43 P
== END ==
LOC: M SMT 08:14
PROVIDERS: ATTEND Nurse Practitioner Women's Health
DX: N20.0 Calculus of kidney (principal)

== ENCOUNTER 2016-10-28 18:47 | Emergency (ER) | payer OTHER ==
[~2016-10-28] VITALS: Ht 185.4 cm; Wt 75.0 kg
[~2016-10-28 18:47] MED LIST changes: +PERC5TAB12 PO; -PERC5TAB6 PO
[2016-10-28] MEDS ORDERED: MORPHINE 4 MG/ML 1ML SYRINGE IV ONE (19:45)
[2016-10-28] MEDS ORDERED: NS 1,000 ML IV ONE (19:45)
[2016-10-28 19:58] LABS: BASO # 0.1 K/mm3 (0.0-0.2); BASO % 0.9 % (0.0-1.0); EOS # 0.2 K/mm3 (0.0-0.50); EOS % 2.1 % (0.0-3.0); LARGE UNSTAINED CELL # 0.6 K/mm3 (0.0-0.4); LARGE UNSTAINED CELL % 6.6 % (0.0-4.0); LYMPH # 3.4 K/mm3 (1.5-4.5); LYMPH % 29.2 % (24.0-44.0); MEAN CORPUSCULAR HEMOGLOBIN 31.5 pg (27.0-33.0); MEAN CORPUSCULAR HGB CONC 34.2 g/dl (32.0-36.5); MEAN CORPUSCULAR VOLUME 91.9 fl (80.0-96.0); MONO # 0.7 K/mm3 (0.0-0.8); MONO % 7.8 % (0.0-5.0); NEUTROPHILS % 53.3 % (36.0-66.0); PLATELET COUNT, AUTOMATED 299 k/mm3 (150-450); RED CELL DISTRIBUTION WIDTH 12.6 % (11.5-14.5); WHITE BLOOD COUNT 9.4 K/mm3 (4.0-10.0)
[2016-10-28 20:19] LABS: ALBUMIN/GLOBULIN RATIO 1.11 (1.00-1.93); ALKALINE PHOSPHATASE 74 U/L (45-117); ALT/SGPT 38 U/L (12-78); ANION GAP 6 MEQ/L (8-16); AST/SGOT 26 U/L (15-37); BILIRUBIN,DIRECT 0.2 MG/DL (0.0-0.2); BLOOD UREA NITROGEN 9 MG/DL (7-18); CALCIUM LEVEL 9.1 MG/DL (8.5-10.1); CARBON DIOXIDE LEVEL 29 MEQ/L (21-32); CHLORIDE LEVEL 107 MEQ/L (98-107); CREATININE FOR GFR 0.95 MG/DL (0.70-1.30); GLOMERULAR FILTRATION RATE > 60.0 (>60); GLUCOSE, FASTING 78 MG/DL (70-105); POTASSIUM SERUM 4.3 MEQ/L (3.5-5.1); SODIUM LEVEL 142 MEQ/L (136-145); TOTAL PROTEIN 7.6 GM/DL (6.4-8.2)
--- NOTE | 2016-10-28 20:20 | REPUSA ---
CT of the abdomen and pelvis without contrast Clinical statement: Pain. Technique: Multiple axial CT images were obtained from the base of the lungs to the floor of the pelv is utilizing 5 mm axial slices without administration of contrast. Coronal and sagittal reconstructio ns were also obtained. Comparison: 04/11/2016. Findings: Chest: The visualized lung bases are clear. Abdomen: The kidneys are normal in size bilaterally. There is no evidence of hydronephrosis. The nono bstructing left renal nephrolithiasis is stable. The liver, spleen, pancreas, gallbladder and adrenal glands are unremarkable. The aorta demonstrates normal caliber and contour. There is no abdominal ly mphadenopathy or ascites. Pelvis: The bowel is unremarkable, with no obstructive or inflammatory changes. The appendix is trav l. The urinary bladder is within normal limits. There is no pelvic lymphadenopathy or ascites. The ot her pelvic structures appear unremarkable. Bones: There are no suspicious osseous abnormalities seen. Impression: 1. No acute abnormality to explain the patient's pain. 2. Nonobstructing left renal nephrolithiasis is stable. 3. No obstructive or inflammatory bowel changes.
[2016-10-28] MEDS ORDERED: NORCOTAB PO (20:49)
[2016-10-28 21:04] VITALS: BP 118/72
== END 2016-10-28 21:11 | disposition home or self-care (01) ==
LOC: M ED 18:47
DX: N20.0 Calculus of kidney (principal); Z87.442 Personal history of urinary calculi; K40.90 Unilateral inguinal hernia, without obstruction or gangrene, not specified as recurrent; F17.200 Nicotine dependence, unspecified, uncomplicated

== ENCOUNTER 2017-08-21 15:33 | Emergency (ER) | payer OTHER ==
[2017-08-21 13:45] LABS: KETONE, URINE AUTO RFX NEGATIVE (NEGATIVE); LEUKOCYTE ESTERASE UR AUTO RFX NEGATIVE (NEGATIVE); NITRITE, URINE AUTO RFX NEGATIVE (NEGATIVE); RBC, URINE AUTO RFX 0 /HPF (0-3); SPECIFIC GRAVITY UR AUTO RFX 1.003 (1.002-1.035); SQUAM EPITHELIAL CELL UR AURFX 0 /HPF (0-6); WBC, URINE AUTO RFX 1 /HPF (0-3)
[2017-08-21] MEDS: NS 1,000 ML IV (15:24)
[2017-08-21] MEDS: ONDANSETRON 4MG/2ML VIAL (J2405) IV (15:25)
[2017-08-21] MEDS: KETOROLAC 30 MG/ML VIAL (J1885) IV (15:25)
[2017-08-21] MEDS: MORPHINE 4 MG/ML 1ML VIAL/SYRINGE (J2270) IV (15:27)
[2017-08-21 15:29] LABS: BASO # 0.1 10^3/uL (0.0-0.2); BASO % 1.1 % (0.0-1.0); EOS # 0.2 10^3/uL (0.0-0.50); EOS % 2.3 % (0.0-3.0); HEMATOCRIT 51.8 % (42.0-52.0); HEMOGLOBIN 17.1 g/dl (13.5-17.5); IMMATURE GRANULOCYTE % 0.5 % (0-3.0); LYMPH # 3.2 10^3/uL (1.5-4.5); LYMPH % 37.5 % (24.0-44.0); MEAN CORPUSCULAR HEMOGLOBIN 30.7 pg (27.0-33.0); MONO # 0.6 10^3/uL (0.0-0.8); MONO % 7.4 % (0.0-5.0); NEUTROPHILS # 4.3 10^3/uL (1.8-7.7); NEUTROPHILS % 51.2 % (36.0-66.0); PLATELET COUNT, AUTOMATED 270 10^3/uL (150-450); RED BLOOD COUNT 5.57 10^6/uL (4.30-6.10); RED CELL DISTRIBUTION WIDTH 12.5 % (11.5-14.5); WHITE BLOOD COUNT 8.4 10^3/uL (4.0-10.0)
[2017-08-21 15:47] LABS: ANION GAP 4 MEQ/L (8-16); BLOOD UREA NITROGEN 14 MG/DL (7-18); CALCIUM LEVEL 9.7 MG/DL (8.5-10.1); CARBON DIOXIDE LEVEL 31 MEQ/L (21-32); CHLORIDE LEVEL 105 MEQ/L (98-107); CREATININE FOR GFR 1.01 MG/DL (0.70-1.30); GLOMERULAR FILTRATION RATE > 60.0 (>60); GLUCOSE, FASTING 95 MG/DL (70-100); POTASSIUM SERUM 4.3 MEQ/L (3.5-5.1); SODIUM LEVEL 140 MEQ/L (136-145)
[2017-08-21] MEDS: PERCOCET 5MG/325MG TAB PO (16:36)
== END 2017-08-21 16:41 | disposition home or self-care (01) ==
LOC: M ED 15:33
DX: N20.1 Calculus of ureter (principal); N13.30 Unspecified hydronephrosis; F33.9 Major depressive disorder, recurrent, unspecified; F17.210 Nicotine dependence, cigarettes, uncomplicated; Z87.442 Personal history of urinary calculi; Z98.890 Other specified postprocedural states; Z79.899 Other long term (current) drug therapy
CPT/HCPCS: J2270

== ENCOUNTER → 2017-08-26 | Outpatient (REF) | payer OTHER ==
[2017-08-26 13:27] LABS: APPEARANCE, URINE CLEAR (CLEAR); BACTERIA, URINE AUTO NEGATIVE (NEGATIVE); BILIRUBIN, URINE AUTO NEGATIVE (NEGATIVE); BLOOD, URINE BLOOD 1+ (NEGATIVE); COLOR, URINE YELLOW (YELLOW); GLUCOSE, URINE (UA) AUTO NEGATIVE (NEGATIVE); KETONE, URINE AUTO NEGATIVE (NEGATIVE); LEUKOCYTE ESTERASE, URINE AUTO NEGATIVE (NEGATIVE); MUCUS, URINE SMALL (NEGATIVE); NITRITE, URINE AUTO NEGATIVE (NEGATIVE); PROTEIN, URINE AUTO NEGATIVE (NEGATIVE); RBC, URINE AUTO 4 /HPF (0-3); SPECIFIC GRAVITY URINE AUTO 1.013 (1.002-1.035); SQUAMOUS EPITHELIAL CELL UR AU 0 /HPF (0-6); UROBILINOGEN, URINE AUTO 0.2 mg/dL (0.0-2.0); WBC, URINE AUTO 1 /HPF (0-3)
== END ==
LOC: M SMT 12:57
DX: N13.2 Hydronephrosis with renal and ureteral calculous obstruction (principal)
CPT/HCPCS: 81001

== ENCOUNTER 2017-08-29 09:47 | Day surgery (SDC) | payer OTHER ==
[2017-08-29] MEDS: KETOROLAC 30 MG/ML VIAL (J1885) IV (10:36)
[2017-08-29] MEDS: ONDANSETRON 4MG/2ML VIAL (J2405) IV (10:36)
[2017-08-29] MEDS: MORPHINE 4 MG/ML 1ML VIAL/SYRINGE (J2270) IV ×3 (10:52→21:51)
[2017-08-29] MEDS: NS 1,000 ML IV ×2 (11:46→16:23)
[2017-08-29 13:37] LABS: KETONE, URINE AUTO RFX NEGATIVE (NEGATIVE); LEUKOCYTE ESTERASE UR AUTO RFX NEGATIVE (NEGATIVE); NITRITE, URINE AUTO RFX NEGATIVE (NEGATIVE); RBC, URINE AUTO RFX 0 /HPF (0-3); SPECIFIC GRAVITY UR AUTO RFX 1.001 (1.002-1.035); SQUAM EPITHELIAL CELL UR AURFX 0 /HPF (0-6); WBC, URINE AUTO RFX 0 /HPF (0-3)
[2017-08-29 14:19] LABS: ANION GAP 10 MEQ/L (8-16); BLOOD UREA NITROGEN 12 MG/DL (7-18); CALCIUM LEVEL 9.2 MG/DL (8.5-10.1); CARBON DIOXIDE LEVEL 25 MEQ/L (21-32); CHLORIDE LEVEL 105 MEQ/L (98-107); CREATININE FOR GFR 1.04 MG/DL (0.70-1.30); GLOMERULAR FILTRATION RATE > 60.0 (>60); GLUCOSE, FASTING 97 MG/DL (70-100); POTASSIUM SERUM 4.1 MEQ/L (3.5-5.1); SODIUM LEVEL 140 MEQ/L (136-145)
[2017-08-29 14:28] LABS: BASO # 0.1 10^3/uL (0.0-0.2); BASO % 1.1 % (0.0-1.0); EOS # 0.2 10^3/uL (0.0-0.50); EOS % 2.3 % (0.0-3.0); HEMATOCRIT 52.4 % (42.0-52.0); HEMOGLOBIN 17.5 g/dl (13.5-17.5); IMMATURE GRANULOCYTE % 0.5 % (0-3.0); LYMPH # 2.7 10^3/uL (1.5-4.5); LYMPH % 36.8 % (24.0-44.0); MEAN CORPUSCULAR HEMOGLOBIN 30.8 pg (27.0-33.0); MEAN CORPUSCULAR HGB CONC 33.4 g/dl (32.0-36.5); MEAN CORPUSCULAR VOLUME 92.3 fl (80.0-96.0); MONO # 0.7 10^3/uL (0.0-0.8); NEUTROPHILS # 3.7 10^3/uL (1.8-7.7); NEUTROPHILS % 49.3 % (36.0-66.0); PLATELET COUNT, AUTOMATED 272 10^3/uL (150-450); RED BLOOD COUNT 5.68 10^6/uL (4.30-6.10); RED CELL DISTRIBUTION WIDTH 12.2 % (11.5-14.5); WHITE BLOOD COUNT 7.4 10^3/uL (4.0-10.0)
[2017-08-29] MEDS: HYDROmorphone HCL 1 MG/ML SYRINGE (J1170) IV ×2 (16:23→19:34)
[2017-08-29] MEDS ORDERED: oxyCODONE 5MG TAB PO (19:45)
[2017-08-29] MEDS ORDERED: ONDANSETRON 4MG/2ML VIAL (J2405) IV (19:45)
[2017-08-29] MEDS: cefTRIAXone SOD 1 GM in D5W MINI-BAG PLUS 50 ML IV (19:52)
[2017-08-29] MEDS: D5W/0.45% SODIUM CHLORIDE 1,000 ML IV (19:53)
[2017-08-29 20:10] LABS: CHLAMYDIA DNA AMPLIFICATION NEGATIVE (NEGATIVE); GC DNA AMPLIFICATION NEGATIVE (NEGATIVE)
[2017-08-29] MEDS ORDERED: MORPHINE 2 MG/ML 1ML SYRINGE (J2270) As Ordered (21:49)
[2017-08-30] MEDS ORDERED: dexameTHASONE 4 MG/ML 1ML VIAL (J1100) As Ordered (01:20)
[2017-08-30] MEDS ORDERED: LIDOCAINE 2% INJ 100 MG/5 ML SDV (FOR ANES.) As Ordered (01:20)
[2017-08-30] MEDS ORDERED: fentaNYL 100 MCG/2 ML INJECTION (J3010) As Ordered ×2 (01:20→02:36)
[2017-08-30] MEDS ORDERED: PROPOFOL 200 MG/20 ML VIAL As Ordered (01:20)
[2017-08-30] MEDS ORDERED: MIDAZOLAM INJ 2 MG/2 ML VIAL (J2250) As Ordered (01:20)
[2017-08-30] MEDS ORDERED: ONDANSETRON 4MG/2ML VIAL (J2405) As Ordered (01:20)
[2017-08-30] MEDS: CONRAY-60 60% 50ML VIAL (Q9961) As Ordered (01:49)
[2017-08-30] MEDS ORDERED: ONDANSETRON 4MG/2ML VIAL (J2405) IV (02:30)
[2017-08-30] MEDS: LR 1,000 ML IV (02:33)
[2017-08-30] MEDS: NORCO, ANEXSIA 5/325MG TABLET (HYDROcodone/ACETAMINOPHEN) PO ×2 (02:33→03:06)
[2017-08-30] MEDS: fentaNYL 100 MCG/2 ML INJECTION (J3010) IV ×4 (02:33→02:51)
[2017-08-30] MEDS ORDERED: NORCO, ANEXSIA 5/325MG TABLET (HYDROcodone/ACETAMINOPHEN) As Ordered (02:36)
[2017-08-30] MEDS: D5W/0.45% SODIUM CHLORIDE 1,000 ML IV (02:45)
[2017-08-30] MEDS ORDERED: oxyBUTYnin 5 MG TAB PO (04:15)
[2017-08-30] MEDS: MORPHINE 4 MG/ML 1ML VIAL/SYRINGE (J2270) IV ×3 (04:36→09:18)
[2017-08-30] MEDS: oxyBUTYnin 5 MG TAB PO (04:56)
[2017-08-30] MEDS: oxyCODONE 5MG TAB PO (08:23)
== END 2017-08-30 09:50 | disposition home or self-care (01) ==
LOC: M PED 08-30 03:15 → M SDC 08-30 09:50 → M ED 09:47 → M SDC 19:10
DX: N20.1 Calculus of ureter (principal); F17.210 Nicotine dependence, cigarettes, uncomplicated
CPT/HCPCS: 52352

== ENCOUNTER → 2017-09-20 | Outpatient (REF) | payer OTHER | LOC: M SMT 16:59 | DX: N20.1 Calculus of ureter (principal) ==

== ENCOUNTER → 2017-12-19 | Outpatient (REF) | payer OTHER ==
[2017-12-19 19:12] LABS: APPEARANCE, URINE CLEAR (CLEAR); BACTERIA, URINE AUTO NEGATIVE (NEGATIVE); BILIRUBIN, URINE AUTO NEGATIVE (NEGATIVE); BLOOD, URINE BLOOD NEGATIVE (NEGATIVE); COLOR, URINE STRAW (YELLOW); GLUCOSE, URINE (UA) AUTO NEGATIVE (NEGATIVE); KETONE, URINE AUTO NEGATIVE (NEGATIVE); LEUKOCYTE ESTERASE, URINE AUTO NEGATIVE (NEGATIVE); MUCUS, URINE SMALL (NEGATIVE); NITRITE, URINE AUTO NEGATIVE (NEGATIVE); PROTEIN, URINE AUTO NEGATIVE (NEGATIVE); RBC, URINE AUTO 0 /HPF (0-3); SPECIFIC GRAVITY URINE AUTO 1.006 (1.002-1.035); SQUAMOUS EPITHELIAL CELL UR AU 0 /HPF (0-6); UROBILINOGEN, URINE AUTO 0.2 mg/dL (0.0-2.0); WBC, URINE AUTO 0 /HPF (0-3)
== END ==
LOC: M SMT 17:05
DX: N20.0 Calculus of kidney (principal)

== ENCOUNTER → 2017-12-27 | Outpatient (CLI) | payer OTHER | LOC: M RAD 13:23 | DX: N20.0 Calculus of kidney (principal) | CPT/HCPCS: 74176 ==

== ENCOUNTER 2018-02-20 13:39 | Emergency (ER) | payer OTHER ==
[~2018-02-20] VITALS: Ht 180.3 cm; Wt 81.8 kg
[~2018-02-20 13:39] MED LIST changes: +AMBI5TAB PO; +FLOM0.4C39 PO; -FLOM5CAP PO; +KETO10TAB PO; +NORCOTAB PO; +OXYCODONE-ACE PO; +TORADOL PO; +ZOFR4TAB14 PO
[2018-02-20] MEDS ORDERED: ONDANSETRON 4 MG ORAL DISINTEGRATING TAB (Q0162 PER 1MG) As Ordered ONE (15:42)
[2018-02-20] MEDS: ONDANSETRON 4 MG ORAL DISINTEGRATING TAB (Q0162 PER 1MG) PO ONE ×2 (15:45→18:13)
[2018-02-20 15:46] LABS: BASO # 0.1 10^3/uL (0.0-0.2); BASO % 0.7 % (0.0-1.0); EOS # 0.1 10^3/uL (0.0-0.50); HEMATOCRIT 51.9 % (42.0-52.0); HEMOGLOBIN 17.3 g/dl (13.5-17.5); LYMPH # 2.5 10^3/uL (1.5-4.5); LYMPH % 23.5 % (24.0-44.0); MEAN CORPUSCULAR HEMOGLOBIN 30.5 pg (27.0-33.0); MEAN CORPUSCULAR HGB CONC 33.3 g/dl (32.0-36.5); MEAN CORPUSCULAR VOLUME 91.5 fl (80.0-96.0); MONO # 0.7 10^3/uL (0.0-0.8); MONO % 6.2 % (0.0-5.0); NEUTROPHILS # 7.2 10^3/uL (1.8-7.7); NEUTROPHILS % 67.9 % (36.0-66.0); PLATELET COUNT, AUTOMATED 301 10^3/uL (150-450); RED BLOOD COUNT 5.67 10^6/uL (4.30-6.10); WHITE BLOOD COUNT 10.6 10^3/uL (4.0-10.0)
--- NOTE | 2018-02-20 16:17 | REP ---
CT abdomen and pelvis without IV or oral contrast: History: Left flank pain. Dysuria. Comparison CT study December 27, 2017. Findings: Preliminary digital emd special education teacher radiograph is unremarkable. There is a linear plate-like atelectasis in the lower lobes bilaterally. This is a new finding. There is mild however. No focal hepatic or splenic lesion is seen. No adrenal lesion is observed. The pancreas and gallbladder remain unremarkable. There is no evidence of intrarenal calculus or hydronephrosis on either side. A normal appendix is seen in the right lower quadrant. There are dystrophic calcifications in the prostate. Urinary bladder is intact. Small and large intestinal bowel loops are normal in the abdomen and pelvis. No abdominal wall defect is seen. No bony destructive lesion is seen. Impression: There are dystrophic calcifications in the prostate. No other urinary tract calculus is seen. No hydronephrosis is noted. Normal appendix. Otherwise negative. Electronically Signed by Ned Glover MD 02/20/2018 08:14 P
[2018-02-20 16:20] LABS: ALBUMIN 4.1 GM/DL (3.2-5.2); ALT/SGPT 44 U/L (12-78); BILIRUBIN,DIRECT 0.3 MG/DL (0.0-0.2); BILIRUBIN,TOTAL 1.3 MG/DL (0.2-1.0); BLOOD UREA NITROGEN 12 MG/DL (7-18); CALCIUM LEVEL 8.9 MG/DL (8.5-10.1); CARBON DIOXIDE LEVEL 28 MEQ/L (21-32); CHLORIDE LEVEL 106 MEQ/L (98-107); CREATININE FOR GFR 1.13 MG/DL (0.70-1.30); GLOMERULAR FILTRATION RATE > 60.0 (>60); GLUCOSE, FASTING 90 MG/DL (70-100); LIPASE 345 U/L (73-393); POTASSIUM SERUM 4.2 MEQ/L (3.5-5.1); SODIUM LEVEL 140 MEQ/L (136-145)
[2018-02-20] MEDS ORDERED: ZOFR4TAB14 PO (18:08)
[2018-02-20 18:15] VITALS: BP 130/79
--- NOTE | 2018-02-20 20:33 | REP ---
GALLBLADDER ULTRASOUND: HISTORY: Elevated bilirubin. There are no filling defects in the gallbladder. The common bile duct measures 2.7 mm. The liver is normal in echogenicity. The pancreas is not seen. The right kidney measures 5.4 cm in transverse x 4.6 cm in AP x 11.5 cm in cephalocaudal dimensions. There is no hydronephrosis or mass. IMPRESSION:Normal gallbladder ultrasound. Electronically Signed by Jose Mathews MD 02/21/2018 08:34 A
== END 2018-02-20 18:17 | disposition home or self-care (01) ==
LOC: M ED 13:39
DX: R10.30 Lower abdominal pain, unspecified (principal); R11.0 Nausea; F33.9 Major depressive disorder, recurrent, unspecified; G47.33 Obstructive sleep apnea (adult) (pediatric); Z87.442 Personal history of urinary calculi; F17.210 Nicotine dependence, cigarettes, uncomplicated
CPT/HCPCS: 36415; 74176; 76705; 80048; 80076; 81001; 83690; 85025; 99283; Q0162

== ENCOUNTER 2018-05-28 07:23 | Emergency (ER) | payer OTHER ==
[~2018-05-28] VITALS: Ht 180.3 cm; Wt 81.8 kg
[~2018-05-28 07:23] MED LIST changes: +HYDR-3715 PO; -NORCOTAB PO
[2018-05-28] MEDS ORDERED: ONDANSETRON 4MG/2ML VIAL (J2405) IV ONE (07:45)
[2018-05-28] MEDS ORDERED: NS 1,000 ML IV ONE (07:45)
[2018-05-28] MEDS ORDERED: KETOROLAC 30 MG/ML VIAL (J1885) IV ONE (07:45)
[2018-05-28 08:04] LABS: BASO # 0.1 10^3/uL (0.0-0.2); BASO % 0.7 % (0.0-1.0); EOS # 0.2 10^3/uL (0.0-0.50); EOS % 2.8 % (0.0-3.0); HEMATOCRIT 48.9 % (42.0-52.0); HEMOGLOBIN 16.2 g/dl (13.5-17.5); LYMPH # 2.2 10^3/uL (1.5-4.5); LYMPH % 31.4 % (24.0-44.0); MEAN CORPUSCULAR HEMOGLOBIN 30.5 pg (27.0-33.0); MEAN CORPUSCULAR HGB CONC 33.1 g/dl (32.0-36.5); MEAN CORPUSCULAR VOLUME 91.9 fl (80.0-96.0); MONO # 0.5 10^3/uL (0.0-0.8); MONO % 6.6 % (0.0-5.0); NEUTROPHILS # 4.1 10^3/uL (1.8-7.7); NEUTROPHILS % 58.1 % (36.0-66.0); PLATELET COUNT, AUTOMATED 232 10^3/uL (150-450); RED BLOOD COUNT 5.32 10^6/uL (4.30-6.10); WHITE BLOOD COUNT 7.1 10^3/uL (4.0-10.0)
[2018-05-28 08:26] LABS: ALBUMIN 3.6 GM/DL (3.2-5.2); ALT/SGPT 60 U/L (12-78); AMYLASE 68 U/L (25-115); BILIRUBIN,DIRECT 0.2 MG/DL (0.0-0.2); BILIRUBIN,TOTAL 0.9 MG/DL (0.2-1.0); BLOOD UREA NITROGEN 10 MG/DL (7-18); CALCIUM LEVEL 8.5 MG/DL (8.5-10.1); CARBON DIOXIDE LEVEL 23 MEQ/L (21-32); CHLORIDE LEVEL 109 MEQ/L (98-107); CREATININE FOR GFR 1.14 MG/DL (0.70-1.30); GLOMERULAR FILTRATION RATE > 60.0 (>60); GLUCOSE, FASTING 129 MG/DL (70-100); LIPASE 347 U/L (73-393); SODIUM LEVEL 141 MEQ/L (136-145); TOTAL PROTEIN 6.2 GM/DL (6.4-8.2)
[2018-05-28] MEDS ORDERED: MORPHINE 4 MG/ML 1ML VIAL/SYRINGE (J2270) IV ONE (08:45)
[2018-05-28] MEDS ORDERED: KETO10TAB PO (10:08)
[2018-05-28 10:23] VITALS: BP 113/74
--- NOTE | 2018-05-28 10:47 | REP ---
CT ABDOMEN AND PELVIS WITHOUT CONTRAST: CT abdomen and pelvis performed without oral or IV contrast. Sagittal and coronal reconstruction images are performed. IMPRESSION: Minimal fibrotic changes are seen in the visualized lung bases. There is a tiny calcified granuloma in the right lower lobe. Liver, spleen, adrenals, pancreas, and kidneys are grossly unremarkable. There is no renal or ureteral calculus and no hydroureteronephrosis. No bladder calculus is seen. There is no abdominal aortic aneurysm. There is no adenopathy. There is no free air or free fluid. There is no bowel wall thickening. There is no evidence of appendicitis. I see no pelvic mass. IMPRESSION: No renal or ureteral calculus. No hydroureteronephrosis. No appendicitis. No free air or free fluid. Electronically Signed by Royal Viramontes MD 05/28/2018 10:54 A
== END 2018-05-28 10:30 | disposition home or self-care (01) ==
LOC: M ED 07:23
DX: R31.9 Hematuria, unspecified (principal); G47.30 Sleep apnea, unspecified; M54.9 Dorsalgia, unspecified; Z87.442 Personal history of urinary calculi; Z87.891 Personal history of nicotine dependence
CPT/HCPCS: 74176; 80048; 80076; 81001; 82150; 83690; 85025; 96361; 96374; 96375; 99284; J1885; J2270; J2405

== ENCOUNTER 2019-08-31 18:19 | Emergency (ER) | payer OTHER ==
[~2019-08-31] VITALS: Ht 180.3 cm; Wt 88.8 kg
[2019-08-31] MEDS ORDERED: GABA600T4 PO (18:30)
[2019-08-31] MEDS ORDERED: PRAZ1CAP PO (18:30)
[2019-08-31] MEDS ORDERED: CITA10TA5 PO (18:30)
[2019-08-31] MEDS ORDERED: CYCL5TAB PO (18:30)
--- NOTE | 2019-08-31 19:28 | REP ---
Clinical: Trauma. Technique: Internal rotation, external rotation, and Y view of the left shoulder. Findings: There is a fracture through the mid clavicular shaft with mild angulation. Acromioclavicular and glenohumeral joints are intact and normal. Impression: Mid clavicular shaft fracture. Electronically Signed by Andrea Lancaster MD 08/31/2019 07:19 P
--- NOTE | 2019-08-31 19:30 | REP ---
Clinical: Trauma. Injury. Technique: Two views of the left clavicle. Findings: There is a mid clavicular shaft fracture. Impression: Mid clavicular shaft fracture. Electronically Signed by Andrea Lancaster MD 08/31/2019 07:21 P
[2019-08-31] MEDS ORDERED: NORC1TAB7 PO (19:54)
[2019-08-31 20:00] VITALS: BP 132/88
[2019-08-31] MEDS ORDERED: NORCO, ANEXSIA 5/325MG TABLET (HYDROcodone/ACETAMINOPHEN) PO ONE (20:00)
== END 2019-08-31 20:02 | disposition home or self-care (01) ==
LOC: M ED 18:19
DX: S42.025A Nondisplaced fracture of shaft of left clavicle, initial encounter for closed fracture (principal); S43.402A Unspecified sprain of left shoulder joint, initial encounter; S46.912A Strain of unspecified muscle, fascia and tendon at shoulder and upper arm level, left arm, initial encounter; X58.XXXA Exposure to other specified factors, initial encounter; Y92.89 Other specified places as the place of occurrence of the external cause; Y93.89 Activity, other specified; Y99.1 Military activity; F32.9 Major depressive disorder, single episode, unspecified; Z72.0 Tobacco use; Z79.899 Other long term (current) drug therapy

== ENCOUNTER 2020-07-07 02:57 | Emergency (ER) | payer OTHER ==
[~2020-07-07] VITALS: Ht 180.3 cm; Wt 91.1 kg
[2020-07-07 02:57] VITALS: BP 133/86
[~2020-07-07 02:57] MED LIST changes: +CITA10TA5 PO; +CYCL5TAB PO; +GABA600T4 PO; +NORC1TAB7 PO; +PRAZ1CAP PO
[2020-07-07] MEDS ORDERED: SERT50TA29 PO (03:07)
[2020-07-07] MEDS ORDERED: ARIP1TAB4 PO (03:07)
[2020-07-07] MEDS ORDERED: PENICILLIN V POTASSIUM 500 MG TAB PO ONE (03:40)
[2020-07-07] MEDS ORDERED: PENI500T PO (03:42)
== END 2020-07-07 04:24 | disposition home or self-care (01) ==
LOC: M ED 02:57
DX: J02.9 Acute pharyngitis, unspecified (principal); F32.9 Major depressive disorder, single episode, unspecified; Z79.899 Other long term (current) drug therapy